=== PATIENT | male | born 1980 | race Caucasian/White ===

== ENCOUNTER 2017-07-27 22:01 | Emergency (ER) | payer SELFPAY ==
[~2017-07-27] VITALS: Ht 185.4 cm; Wt 70.3 kg
[2017-07-27 22:05] VITALS: Ht 185.4 cm; Wt 70.3 kg
[2017-07-28 00:44] VITALS: BP 130/79
== END 2017-07-28 00:44 | disposition home or self-care (01) ==
LOC: ED 22:01
DX: S16.1XXA Strain of muscle, fascia and tendon at neck level, initial encounter (principal); I10 Essential (primary) hypertension; V89.2XXA Person injured in unspecified motor-vehicle accident, traffic, initial encounter; Y93.89 Activity, other specified; Y92.89 Other specified places as the place of occurrence of the external cause; Y99.8 Other external cause status
CPT/HCPCS: J1885; Q0092